=== PATIENT | female | born 1980 | race Caucasian/White ===

== ENCOUNTER 2022-03-11 12:42 | Emergency (ER) | payer MEDICAID ==
[~2022-03-11] VITALS: Ht 160 cm; Wt 99.8 kg
[2022-03-11 12:42] VITALS: BP_SYST 203
--- NOTE | 2022-03-11 12:51 | NUR ---
PT TRIAGED AND BROUGHT BACK TO BED #4 AND REPORT GIVEN TO NURSE
--- NOTE | 2022-03-11 13:06 | NUR ---
received in [facility] bib for chest pain. reports took 5 pills phonobarbital d/t having a lot of anxiety. + dizziness. tachy @ 120. denies n,vd,fever, chills, sob, cough. hx dm, htn, mentally disabled, seizures. anxious, restless, wants to leave, standing up, doesn't want to lay in [facility]. and mental health therapist @ bedside. aao x2. resp even and nonlabored.
--- NOTE | 2022-03-11 13:17 | NUR ---
pt anxious, refused blood draw @ this time, wants to leave. will inform dr. short
--- NOTE | 2022-03-11 13:30 | NUR ---
dr. short, , [facility] therapist attempting to convince pt stay. pt ambulatory, walking towards exit. states "i want to go home". pt attempted to explain plan of care, risk and consequences of leaving against medical advice. called security for assistance. pt, , mental therapist walked out. dr. short and charger operator helper aware.
--- NOTE | 2022-03-11 13:43 | NUR ---
CALLED [facility] PER DOCTOR HERNANDEZ REQUEST. INFORMED OF ELOPEMENT, PER CONVERSATION, THEY CAN NOT BRING PT BACK [facility] EPT WAS NOT A 5150. DR HERNANDEZ ADVISED.
--- NOTE | 2022-03-11 13:45 | NUR ---
I CALLED [facility] PROVIDED ON DEMOGRAPHHIC DATA AT [phone], WAS UNABLE TO LEAVE A MESSAGE. PER NOTICE, [facility] NOT RECEIVING ANY CALLS/DISCONNECTED, DR HERNANDEZ ADVISED.
== END 2022-03-11 16:55 | disposition left against medical advice (07) ==
LOC: SED 12:42
DX: R07.89 Other chest pain (principal); Z88.1 Allergy status to other antibiotic agents; Z88.8 Allergy status to other drugs, medicaments and biological substances; Z79.899 Other long term (current) drug therapy
CPT/HCPCS: 93005; 99283